=== PATIENT | female | born 1955 | race Caucasian/White ===

== ENCOUNTER 2021-05-27 13:21 | Outpatient (RCR) | payer OTHER, SELFPAY ==
--- NOTE | 2021-05-27 14:44 | PTOPEVAL ---
PHYSICAL THERAPY EVALUATION AND PLAN OF CARE Thank you for referring Susy Bird to [facility].? The patient is scheduled to be seen for therapy? 2x/week for 4 weeks. Please review, sign, date and return this plan of care CRISTA. I agree with and certify that the following plan of care is medically necessary. Referring Physician Date Attending Provider: Lidya Bourgeois NP Evaluation Diagnosis weakness, frequent falls Onset chronic Subjective Information States that in 1997 she had Query Text:As Reported By Patient/ neck surgery and they had to Family take some bone from her hip - in taking the bone from the hip they nicked a nerve - she went to 8months of physical therapy and recovered her function. States that she has been falling more frequently for at least the last 4 years but maybe longer. Susy's mother is here today for evaluation and states that the way she walks today is about normal, but lately she is weaker and she has to hold onto things. She falls a couple times a year. States that she has no pain, has no numbness or tingling. States she sits to perform all ADLs. Prior Level of Function Activity Level (Last 3 Months) Hand Dominance Right Activity of Daily Living Ability Needs Some Help Indoor/Home Mobility Needs Some Help Community Mobility Needs Some Help Stairs Ability Dependent Functional Cognition (Planning, Shopping Independent , Taking Medications) Cooking Yes Cleaning Yes Laundry Yes Shopping No Driving Yes Home Setting Home Type House,Single Level Environmental Barriers Stairs, None Living Situation With Parent Mobility Assistive Devices (Used Last 3 Walker, Rollator Months) Comments Additional Prior Level of Function states she spongebathes Comments because it is too difficult to step into the bathtub/shower; to get off the toilet she pulls on the sink. Pain Assessment Timing of Pain Assessment Timing of Pain Assessment
--- NOTE | 2021-06-02 10:58 | PCPTNOTE ---
Patient called & cancelled scheduled appointment this date due to family emergency.
--- NOTE | 2021-06-09 13:26 | PCPTNOTE ---
Patient called & cancelled scheduled appointment this date due to getting tested for COVID.
--- NOTE | 2021-06-14 13:33 | PCPTNOTE ---
Patient called & cancelled scheduled appointment this date due to not feeling well.
--- NOTE | 2021-06-16 11:39 | PCPTNOTE ---
Patient called & cancelled scheduled appointment this date due to being really sick. She is cancelling all future appointments and will call to get re-evaled and new orders once she is feeling better. Informed PT.
--- NOTE | 2021-06-16 14:02 | PCPTNOTE ---
PHYSICAL THERAPY DISCHARGE NOTE Attending Provider: Lidya Bourgeois NP Patient:Susy Bird Date of :1955 Patient has not returned for any further treatments since 05/27/2021. She will be discharged at this time as she cancelled her remaining appointments for feeling chronically unwell. Will return with a new doctor's order if needed. Patient?s initial visit was on 05/27/2021. Thank you for referring this patient to [facility]. Please review, sign, date and return this discharge summary CRISTA. I have been updated about the patient's current status and I agree with discharge from the above service at this time. Referring Physician Date
== END 2021-06-16 15:13 | disposition home or self-care (01) ==
LOC: ANHPT 13:21
PROVIDERS: PCP Nurse Practitioner Family; Visit Provider Nurse Practitioner Family
DX: M54.16 Radiculopathy, lumbar region (principal); M62.81 Muscle weakness (generalized); R29.6 Repeated falls
CPT/HCPCS: 97110; 97163